=== PATIENT | male | born 1940 | race Caucasian/White ===

== ENCOUNTER 2019-09-14 20:13 | Observation (INO) | payer MEDICARE ==
[2019-09-14] MEDS ORDERED: Sodium Chloride 0.9% 10 ML Syringe FLUSH PRN ×2 (20:24→23:56)
[2019-09-14] MEDS ORDERED: Sodium Chloride 0.9% 1,000 ML IV ONE (20:27)
[2019-09-14] MEDS ORDERED: Insulin Regular, Human 100 Units/ML 3 ML Vial IVPUSH ONE (20:28)
[2019-09-14 21:23] LABS: CHLORIDE,CL 92 mmol/L (98-107)
[2019-09-14 21:27] LABS: SODIUM,NA 129 mmol/L (136-145)
--- NOTE | 2019-09-14 21:40 | EDM.PDOC ---
ED HPI GENERAL MEDICAL PROBLEM - General Chief Complaint: General Stated Complaint: HIGH BLOOD SUGAR Time Seen by Provider: 09/14/19 20:15 Source of Information: Reports: Patient, Family History Limitations: Reports: No Limitations - History of Present Illness INITIAL COMMENTS - FREE TEXT/NARRATIVE: Pt. presents to ER with complaints of elevated blood sugar, urinary frequency, and chills. 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 He underwent a decreased dose of Alimta last week due to renal insufficiency. Pt. states that he has been fatigued since then, but worse in the past 1-2 days. He has been chilled but is no checking his temp. Denies any nausea or vomiting. He does complain of some cough and respirophasic chest pain. it is non-productive. Pt. denies any dysuria, hematuria, or flank. pain. He does, however, complain or urinary frequency. Pt. denies any skin rashes or erythema. Pt. is currently "prediabetic" according to his . She states that he was started on Lantus last spring after he was seen in the ER with hyperglycemia, dehydration and ESTRELLA but he has not been taking it, according to family at the behest of his oncologist. In reviewing his chart, he has had blood sugars in to 250-300 range numerous times and he is not currently on any medication. He states that he checks his blood glucose "a few times a week". It was greater than 350mg/dl yesterday. Onset Date: 09/12/19 Location: Reports: Generalized Associated Symptoms: Reports: Chest Pain, Cough, Malaise RLQ Pain Score (Numeric/FACES): 2 - Related Data Allergies Allergy/AdvReac Type Severity Reaction Status Date / Time No Known Allergies Allergy Verified 09/14/19 21:11 Home Meds: Home Meds Acetaminophen/Diphenhydramine [Tylenol Pm Ex-Strength Caplet] 2 each PO BEDTIME 09/10/18 [History] Omeprazole 20 mg PO DAILY PRN 09/10/18 [History] Simvastatin 20 mg PO DAILY 09/10/18 [History] Dorzolamide [Trusopt 2% Ophth Soln] 1 drop OP BID 09/14/19 [History] Dronabinol 5 mg PO TID 09/14/19 [History] Folic Acid 1 mg PO DAILY 09/14/19 [History] Lactulose 15 ml PO BID 09/14/19 [History] Lidocaine/Prilocaine [Lidocaine-Prilocaine Cream] 5 gm TP ASDIRECTED PRN [History] Magnesium Oxide [Magnesium] 800 mg PO BID 09/14/19 [History] Prochlorperazine [Compazine] 10 mg PO Q6H PRN 09/14/19 [History] Past Medical History HEENT History: Reports: Cataract Cardiovascular History: Reports: High Cholesterol Gastrointestinal History: Reports: GERD Genitourinary History: Reports: Chronic Renal Insuffiency Other Genitourinary History: 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 Musculoskeletal History: Reports: Arthritis, Other (See Below) Other Musculoskeletal History: degenerative disc disease Neurological History: Reports: Headaches, Chronic, Other (See Below) Other Neuro History: insomnia Endocrine/Metabolic History: Reports: Diabetes, Type II Hematologic History: Reports: Anemia Oncologic (Cancer) History: Reports: Basal Cell Carcinoma, Liver, Renal, Squamous Cell Carcinoma Other Oncologic History: completed chemo 02/2017. 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 Other Dermatologic History: basal cell carcinoma, squamous cell carcinoma, - Past Surgical History Male Surgical History: Reports: Nephrectomy, Other (See Below) Other Male Surgeries/Procedures: ureterectomy, adrenalectomy and bladder cuff resection for renal CA ED ROS GENERAL - Review of Systems Review Of Systems: See Below Constitutional: Reports: No Symptoms HEENT: Reports: No Symptoms Respiratory: Reports: Pleuritic Chest Pain, Cough Cardiovascular: Reports: Chest Pain Endocrine: Reports: Fatigue, High Glucose, Polyuria GI/Abdominal: Reports: No Symptoms : Reports: No Symptoms Musculoskeletal: Reports: No Symptoms Skin: Reports: No Symptoms Neurological: Reports: No Symptoms Psychiatric: Reports: No Symptoms Hematologic/Lymphatic: Reports: No Symptoms Immunologic: Reports: No Symptoms ED EXAM, GENERAL - Physical Exam Exam: See Below Exam Limited By: No Limitations General Appearance: Alert, WD/WN, No Apparent Distress Eye Exam: Bilateral Eye: EOMI, Normal Fundi, Normal Inspection, PERRL Nose: Normal Inspection, No Blood Throat/Mouth: Normal Inspection, Normal Lips, Normal Teeth, Normal Gums, Normal Oropharynx, No Airway Compromise Head: Atraumatic, Normocephalic Neck: Normal Inspection, Supple, Non-Tender, Full Range of Motion Respiratory/Chest: No Respiratory Distress, Normal Breath Sounds, No Accessory Muscle Use, Chest Non-Tender, Decreased Breath Sounds Cardiovascular: Normal Peripheral Pulses, Regular Rate, Rhythm, No Edema, No Gallop, No JVD, No Murmur, No Rub Peripheral Pulses: 4+: Radial (L) GI/Abdominal: Normal Bowel Sounds, Soft, Non-Tender, No Organomegaly, No Distention, No Mass (Male) Exam: Deferred Rectal (Males) Exam: Deferred Back Exam: Normal Inspection, Full Range of Motion Extremities: Normal Inspection, Normal Range of Motion, Non-Tender, No Pedal Edema, Normal Capillary Refill Neurological: Alert, Oriented, CN II-XII Intact, Normal Cognition, Normal Gait, Normal Reflexes, No Motor/Sensory Deficits Psychiatric: Normal Affect, Normal Mood Skin Exam: Warm, Dry, Intact, No Rash, Pallor Lymphatic: No Adenopathy Course - Vital Signs Last Recorded V/S: Last Vital Signs Temp 38.3 C H 09/14/19 22:16 Pulse 100 09/14/19 22:16 Resp 18 09/14/19 22:16 BP 135/65 09/14/19 22:16 Pulse Ox 95 09/14/19 22:16 - Orders/Labs/Meds Orders: Active Orders 24 hr Category Date Time Status EKG Documentation Completion [RC] STAT Care 09/14/19 20:25 Active Implanted Port Access [RC] 08,20 Care 09/14/19 20:28 Active Chest 1V Frontal [CR] Stat Exams 09/14/19 20:25 Taken CULTURE BLOOD [BC] Stat Lab 09/14/19 20:40 Received CULTURE BLOOD [BC] Stat Lab 09/14/19 20:46 Received Sodium Chloride 0.9% [Saline Flush] Med 09/14/19 20:24 Active 10 ml FLUSH ASDIRECTED PRN Blood Culture x2 Reflex Set [OM.PC] Stat Oth 09/14/19 20:26 Ordered Medication Orders Acetaminophen/Diphenhydramine HCl (Tylenol Pm Extra Strength) tab PO BEDTIME ANDRES Folic Acid (Folic Acid) 1 mg PO DAILY ANDRES Sodium Chloride (Normal Saline) 500 mls @ 100 mls/hr IV ASDIRECTED ANDRES Lactulose (Chronulac) 10 gm PO BID ANDRES Lidocaine/Prilocaine (Emla Crm) 5 gm TOP ASDIRECTED PRN PRN Reason: IV Use Non-Formulary Medication (Dorzolamide [Trusopt 2% Ophth Soln]) 1 drop OP BID ANDRES Non-Formulary Medication (Dronabinol [Dronabinol]) 5 mg PO TID ANDRES Non-Formulary Medication (Magnesium Oxide [Magnesium]) 800 mg PO BID ANDRES Non-Formulary Medication (Prochlorperazine [Compazine]) 10 mg PO Q6H PRN PRN Reason: Nausea Omeprazole (Omeprazole) 20 mg PO DAILY PRN PRN Reason: Nausea Simvastatin (Zocor) 20 mg PO DAILY ANDRES Sodium Chloride (Saline Flush) 10 ml FLUSH ASDIRECTED PRN PRN Reason: Keep Vein Open Labs: Laboratory Tests 09/14/19 09/14/19 09/14/19 Range/Units 20:30 20:40 20:40 WBC 12.8 H (4.0-10.0) x10^3/uL RBC 2.70 L (4.5-6.0) x10^6/uL Hgb 8.8 L (14.0-18.0) g/dL Hct 26.9 L (40.0-52.0) % MCV 99.6 H D (78.0-93.0) fL MCH 32.6 H (26.0-32.0) pg MCHC 32.7 (32.0-36.0) g/dL RDW Coeff of Murray 14.2 (10.0-15.0) % Plt Count 169 (130-400) x10^3/uL Neut % (Auto) 92.6 H (50.0-80.0) % Lymph % (Auto) 6.6 L (25.0-50.0) % [place] % (Auto) 0.7 L (2.0-11.0) % Eos % (Auto) 0.0 (0.0-4.0) % Baso % (Auto) 0.1 L (0.2-1.2) % PT 11.3 (10.0-12.8) SEC INR 1.0 L (2.0-3.5) Sodium (136-145) mmol/L Potassium (3.5-5.1) mmol/L Chloride (98-107) mmol/L Carbon Dioxide (21-32) mmol/L Anion Gap (10-20) mmol/L BUN (7-18) mg/dL Creatinine (0.70-1.30) mg/dL Est Cr Clr Drug Dosing mL/min Estimated GFR (MDRD) Glucose (74-106) mg/dL POC Glucose 386 H (74-106) mg/dL Lactic Acid (0.4-2.0) mmol/L Calcium (8.5-10.1) mg/dL Corrected Calcium (8.5-10.1) mg/dL Magnesium (1.8-2.4) mg/dL Total Bilirubin (0.2-1.0) mg/dL AST (15-37) U/L ALT (16-63) U/L Alkaline Phosphatase (46-116) U/L Troponin I (<=0.056) ng/mL C-Reactive Protein (<=0.9) mg/dL Total Protein (6.4-8.2) g/dL Albumin (3.4-5.0) g/dL Globulin Albumin/Globulin Ratio TSH, Ultra Sensitive (0.358-3.74) uIU/mL Urine Color (YELLOW) Urine Appearance (CLEAR) Urine pH (5.0-8.0) Ur Specific Spade Urine Protein (NEGATIVE) mg/dL Urine Glucose (UA) (NEGATIVE) mg/dL Urine Ketones (NEGATIVE) mg/dL Urine Occult Blood (NEGATIVE) Urine Nitrite (NEGATIVE) Urine Bilirubin (NEGATIVE) Urine Urobilinogen (0.2) EU/dL Ur Leukocyte Esterase (NEGATIVE) Urine RBC (NOT SEEN) /HPF Urine WBC (NOT SEEN) /HPF Ur Squamous Epith Cells (NEGATIVE) /HPF Amorphous Sediment Urine Bacteria (NEGATIVE) /HPF Urine Mucus (NEGATIVE) /LPF 09/14/19 09/14/19 09/14/19 Range/Units 20:40 20:40 21:35 WBC (4.0-10.0) x10^3/uL RBC (4.5-6.0) x10^6/uL Hgb (14.0-18.0) g/dL Hct (40.0-52.0) % MCV (78.0-93.0) fL MCH (26.0-32.0) pg MCHC (32.0-36.0) g/dL RDW Coeff of Murray (10.0-15.0) % Plt Count (130-400) x10^3/uL Neut % (Auto) (50.0-80.0) % Lymph % (Auto) (25.0-50.0) % [place] % (Auto) (2.0-11.0) % Eos % (Auto) (0.0-4.0) % Baso % (Auto) (0.2-1.2) % PT (10.0-12.8) SEC INR (2.0-3.5) Sodium 129 L* (136-145) mmol/L Potassium 4.0 (3.5-5.1) mmol/L Chloride 92 L (98-107) mmol/L Carbon Dioxide 26 (21-32) mmol/L Anion Gap 15.0 (10-20) mmol/L BUN 34 H (7-18) mg/dL Creatinine 1.6 H (0.70-1.30) mg/dL Est Cr Clr Drug Dosing 38.02 mL/min Estimated GFR (MDRD) 42 Glucose 396 H (74-106) mg/dL POC Glucose (74-106) mg/dL Lactic Acid 1.3 (0.4-2.0) mmol/L Calcium 8.5 (8.5-10.1) mg/dL Corrected Calcium 10.02 (8.5-10.1) mg/dL Magnesium 1.3 L (1.8-2.4) mg/dL Total Bilirubin 0.6 (0.2-1.0) mg/dL AST 46 H (15-37) U/L ALT 54 (16-63) U/L Alkaline Phosphatase 789 H (46-116) U/L Troponin I < 0.017 (<=0.056) ng/mL C-Reactive Protein 21.9 H (<=0.9) mg/dL Total Protein 7.4 (6.4-8.2) g/dL Albumin 2.1 L (3.4-5.0) g/dL Globulin 5.3 Albumin/Globulin Ratio 0.40 TSH, Ultra Sensitive 0.796 (0.358-3.74) uIU/mL Urine Color Dark yellow H (YELLOW) Urine Appearance Slightly cloudy H (CLEAR) Urine pH 5.5 (5.0-8.0) Ur Specific Spade 1.010 Urine Protein 30 H (NEGATIVE) mg/dL Urine Glucose (UA) 500 H (NEGATIVE) mg/dL Urine Ketones Negative (NEGATIVE) mg/dL Urine Occult Blood Negative (NEGATIVE) Urine Nitrite Negative (NEGATIVE) Urine Bilirubin Negative (NEGATIVE) Urine Urobilinogen 0.2 (0.2) EU/dL Ur Leukocyte Esterase Negative (NEGATIVE) Urine RBC 0-5 (NOT SEEN) /HPF Urine WBC 0-5 (NOT SEEN) /HPF Ur Squamous Epith Cells Rare (NEGATIVE) /HPF Amorphous Sediment Few Urine Bacteria Few H (NEGATIVE) /HPF Urine Mucus Few H (NEGATIVE) /LPF Meds: Medications Generic Name Dose Route Start Last Admin Trade Name Freq PRN Reason Stop Dose Admin Acetaminophen/Diphenhydramine HCl tab 09/15/19 20:00 Tylenol Pm Extra Strength PO BEDTIME ANDRES Folic Acid 1 mg 09/15/19 08:00 Folic Acid PO DAILY ANDRES Sodium Chloride 500 mls @ 100 mls/hr 09/14/19 23:00 Normal Saline IV ASDIRECTED ANDRES Lactulose 10 gm 09/15/19 08:00 Chronulac PO BID ANDRES Lidocaine/Prilocaine 5 gm 09/14/19 22:26 Emla Crm TOP ASDIRECTED PRN IV Use Non-Formulary Medication 1 drop 09/15/19 08:00 Dorzolamide [Trusopt 2% Ophth Soln] OP BID ANDRES Non-Formulary Medication 5 mg 09/15/19 08:00 Dronabinol [Dronabinol] PO TID ANDRES Non-Formulary Medication 800 mg 09/15/19 08:00 Magnesium Oxide [Magnesium] PO BID ANDRES Non-Formulary Medication 10 mg 09/14/19 22:26 Prochlorperazine [Compazine] PO Q6H PRN Nausea Omeprazole 20 mg 09/14/19 22:26 Omeprazole PO DAILY PRN Nausea Simvastatin 20 mg 09/15/19 08:00 Zocor PO DAILY ANDRES Sodium Chloride 10 ml 09/14/19 20:24 Saline Flush FLUSH ASDIRECTED PRN Keep Vein Open Discontinued Medications Generic Name Dose Route Start Last Admin Trade Name Freq PRN Reason Stop Dose Admin Ceftriaxone Sodium 1 gm 09/14/19 21:52 09/14/19 22:00 Rocephin IVPUSH 09/14/19 21:53 1 gm STAT ONE Administration Sodium Chloride 1,000 mls @ 500 mls/hr 09/14/19 20:27 09/14/19 20:49 Normal Saline IV 09/14/19 22:26 500 mls/hr .BOLUS ONE Administration Azithromycin 500 mg/ Sodium 250 mls @ 250 mls/hr 09/14/19 21:52 09/14/19 22: 03 Chloride IV 09/14/19 22:51 250 mls/hr STAT ONE Administration Insulin Human Regular 10 unit 09/14/19 20:28 09/14/19 20:50 Humulin R IVPUSH 09/14/19 20:29 10 units ONETIME ONE Administration - Radiology Interpretation Free Text/Narrative:: Increased peribronchial thickening, inflammatory vs. infectious. Departure - Departure Time of Disposition: 11:13 Disposition: Refer to Observation Clinical Impression: Pneumonia, Hyperglycemia due to type 2 diabetes mellitus, Hyponatremia - Discharge Information - Problem List Review Problem List Initiated/Reviewed/Updated: Yes - My Orders Last 24 Hours: My Active Orders 09/14/19 20:24 Sodium Chloride 0.9% [Saline Flush] 10 ml FLUSH ASDIRECTED PRN 09/14/19 20:25 EKG Documentation Completion [RC] STAT Chest 1V Frontal [CR] Stat 09/14/19 20:26 Blood Culture x2 Reflex Set [OM.PC] Stat 09/14/19 20:28 Implanted Port Access [RC] ,09/14/19 20:40 CULTURE BLOOD [BC] Stat 09/14/19 20:46 CULTURE BLOOD [BC] Stat - Assessment/Plan Last 24 Hours: My Active Orders 09/14/19 20:24 Sodium Chloride 0.9% [Saline Flush] 10 ml FLUSH ASDIRECTED PRN 09/14/19 20:25 EKG Documentation Completion [RC] STAT Chest 1V Frontal [CR] Stat 09/14/19 20:26 Blood Culture x2 Reflex Set [OM.PC] Stat 09/14/19 20:28 Implanted Port Access [RC] ,09/14/19 20:40 CULTURE BLOOD [BC] Stat 09/14/19 20:46 CULTURE BLOOD [BC] Stat Plan: Pt. will be admitted observation. He is a patient of [facility]. He is a code 1. He does have some hilar opacification. His white count is elevated. Will treat him for pneumonia, given his pleuritic chest discomfort and cough. Repeat chest x-ray in the AM. Pt. was given 10U regular insulin in ER. 1 hour bedside glucose showed a 140mg/ dl drop. He was given a 500ml NS bolus and started on NS at 125ml/hr. Will do q2 hour blood glucose checks. He was also given a small snack on admission. He does have an elevated creatinine, but it is actually lower than it was as an outpatient at the end of Aug. All questions were answered. 3 hour troponin due at midnight. Will repeat CBC, chemisty, and troponin in the AM.
[2019-09-14] MEDS ORDERED: Azithromycin 500 MG in Sodium Chloride 0.9% 250 ML IV ONE (21:52)
[2019-09-14] MEDS ORDERED: cefTRIAXone 1 GM Vial IVPUSH ONE (21:52)
[2019-09-14] MEDS ORDERED: Lidocaine/Prilocaine 2.5-2.5% Crm 5 GM Tube TOP PRN (22:26)
[2019-09-14] MEDS ORDERED: Prochlorperazine 5 MG Tab PO PRN (22:26)
[2019-09-14] MEDS ORDERED: Sodium Chloride 0.9% 500 ML IV SCH (23:00)
[2019-09-14] MEDS: Omeprazole 20 MG Cap.CR PO PRN (23:57)
[2019-09-14] MEDS: Acetaminophen/Diphenhydramine 500-25 MG Tab PO SCH (23:58)
[2019-09-15] MEDS ORDERED: Sodium Chloride 0.9% 10 ML Syringe FLUSH PRN (00:43)
[2019-09-15 07:32] LABS: CHLORIDE,CL 99 mmol/L (98-107); SODIUM,NA 133 mmol/L (136-145)
[2019-09-15 07:33] LABS: ANION GAP 11.7 mmol/L (10-20)
[2019-09-15] MEDS ORDERED: DRONABINOL 5 MG PO SCH (08:00)
--- NOTE | 2019-09-15 08:13 | CR ---
[id number] RAD/RAD Chest PA or AP 1V EXAM: RAD Chest PA or AP 1V INDICATION: CHEST PAIN COMPARISON: None. DISCUSSION: Blunting of the left costophrenic sulcus with small nodular appearing parenchymal opacities. Findings are nonspecific and can be seen with chronic interstitial lung disease versus pneumonia. Correlate for signs of infection. Findings are superimposed on bilateral symmetric lung hyperinflation suggesting underlying COPD. Right chest wall port catheter in place. Cardiac mediastinal silhouette is unremarkable. IMPRESSION: As above. Pepe Jane MD 09/15/19 0812 Thank you for allowing us to participate in the care of your patient.
[2019-09-15] MEDS: Folic Acid 1 MG Tab PO SCH (09:08)
[2019-09-15] MEDS: Lactulose Soln 10 GM/15 ML 15 ML UD Cup PO SCH ×2 (09:09→19:59)
[2019-09-15] MEDS: Magnesium Oxide 400 MG Tab PO SCH ×2 (09:09→19:59)
[2019-09-15] MEDS: Simvastatin 20 MG Tab PO SCH (09:13)
[2019-09-15] MEDS: Sodium Chloride 0.9% 10 ML Syringe IV SCH ×2 (09:14→20:00)
[2019-09-15] MEDS ORDERED: Insulin Glargine,Human Rec. Analog 100 Units/ML 3 ML Pen SUBCUT SCH (09:15)
[2019-09-15] MEDS: Sodium Chloride 0.9% 1,000 ML IV SCH ×2 (12:15→22:54)
[2019-09-15] MEDS ORDERED: Insulin Regular, Human 100 Units/ML 3 ML Vial IVPUSH ONE (12:51)
[2019-09-15] MEDS ORDERED: Insulin Regular, Human 100 Units/ML 3 ML Vial IVPUSH STA (19:48)
[2019-09-15] MEDS: Acetaminophen/Diphenhydramine 500-25 MG Tab PO SCH (19:59)
[2019-09-15] MEDS: cefTRIAXone 1 GM Vial IVPUSH SCH (19:59)
[2019-09-15] MEDS ORDERED: Azithromycin 500 MG in Sodium Chloride 0.9% 250 ML IV SCH (20:00)
[2019-09-15] MEDS ORDERED: Azithromycin 500 MG in Sodium Chloride 0.9% 250 ML IV ONE (21:00)
--- NOTE | 2019-09-15 23:01 | PCM.PN ---
- General Info Date of Service: 09/15/19 Admission Dx/Problem (Free Text): Pt. is feeling better this AM. Pt. was started on Lantus 10 u daily this AM. Blood sugars have been in the 220-330 range. He has required regular insulin twice for postprandial hyperglycemia. Pt. sodium has normalized. He has not been experiencing any chest pain or shortness of breath. Denies any vomiting or diarrhea. Pt. continues to have a mild, non-productive cough. He was started on Rocephin and Azithromycin on admit for possible pneumonia. White count was down to 11. Lactic acid was within normal limits. Troponin was trended and continued to be negative. Telemetry showed sinus rhythm without any acute ST or T wave changes. Functional Status: Reports: Pain Controlled, Tolerating Diet, Ambulating, Urinating - Review of Systems General: Reports: No Symptoms HEENT: Reports: No Symptoms Pulmonary: Reports: Cough Cardiovascular: Reports: No Symptoms Gastrointestinal: Reports: No Symptoms Genitourinary: Reports: No Symptoms Musculoskeletal: Reports: No Symptoms Skin: Reports: No Symptoms Neurological: Reports: No Symptoms Psychiatric: Reports: No Symptoms - Patient Data Vitals - Most Recent: Last Vital Signs Temp 36.6 C 09/15/19 21:57 Pulse 73 09/15/19 21:57 Resp 18 09/15/19 21:57 BP 97/49 L 09/15/19 21:57 Pulse Ox 96 09/15/19 21:57 Weight - Most Recent: 74.933 kg I&O - Last 24 Hours: Intake & Output 09/15/19 09/15/19 09/15/19 06:59 14:59 22:59 Intake Total 1250 693 Output Total 450 400 Balance 800 -400 693 Lab Results Last 24 Hours: Laboratory Results - last 24 hr 09/15/19 09/15/19 09/15/19 Range/Units 00:01 00:17 02:04 WBC (4.0-10.0) x10^3/uL RBC (4.5-6.0) x10^6/uL Hgb (14.0-18.0) g/dL Hct (40.0-52.0) % MCV (78.0-93.0) fL MCH (26.0-32.0) pg MCHC (32.0-36.0) g/dL RDW Coeff of Murray (10.0-15.0) % Plt Count (130-400) x10^3/uL Neut % (Auto) (50.0-80.0) % Lymph % (Auto) (25.0-50.0) % [place] % (Auto) (2.0-11.0) % Eos % (Auto) (0.0-4.0) % Baso % (Auto) (0.2-1.2) % Sodium (136-145) mmol/L Potassium (3.5-5.1) mmol/L Chloride (98-107) mmol/L Carbon Dioxide (21-32) mmol/L Anion Gap (10-20) mmol/L BUN (7-18) mg/dL Creatinine (0.70-1.30) mg/dL Est Cr Clr Drug Dosing mL/min Estimated GFR (MDRD) Glucose (74-106) mg/dL POC Glucose 211 H 286 H (74-106) mg/dL Calcium (8.5-10.1) mg/dL Corrected Calcium (8.5-10.1) mg/dL Total Bilirubin (0.2-1.0) mg/dL AST (15-37) U/L ALT (16-63) U/L Alkaline Phosphatase (46-116) U/L Troponin I < 0.017 (<=0.056) ng/mL Total Protein (6.4-8.2) g/dL Albumin (3.4-5.0) g/dL Globulin Albumin/Globulin Ratio 09/15/19 09/15/19 09/15/19 Range/Units 04:01 06:01 06:57 WBC 11.0 H (4.0-10.0) x10^3/uL RBC 2.48 L (4.5-6.0) x10^6/uL Hgb 7.9 L (14.0-18.0) g/dL Hct 24.6 L (40.0-52.0) % MCV 99.2 H (78.0-93.0) fL MCH 31.9 (26.0-32.0) pg MCHC 32.1 (32.0-36.0) g/dL RDW Coeff of [place] 14.0 (10.0-15.0) % Plt Count 147 (130-400) x10^3/uL Neut % (Auto) 90.2 H (50.0-80.0) % Lymph % (Auto) 7.5 L (25.0-50.0) % [place] % (Auto) 2.0 (2.0-11.0) % Eos % (Auto) 0.3 (0.0-4.0) % Baso % (Auto) 0.0 L (0.2-1.2) % Sodium (136-145) mmol/L Potassium (3.5-5.1) mmol/L Chloride (98-107) mmol/L Carbon Dioxide (21-32) mmol/L Anion Gap (10-20) mmol/L BUN (7-18) mg/dL Creatinine (0.70-1.30) mg/dL Est Cr Clr Drug Dosing mL/min Estimated GFR (MDRD) Glucose (74-106) mg/dL POC Glucose 299 H 326 H (74-106) mg/dL Calcium (8.5-10.1) mg/dL Corrected Calcium (8.5-10.1) mg/dL Total Bilirubin (0.2-1.0) mg/dL AST (15-37) U/L ALT (16-63) U/L Alkaline Phosphatase (46-116) U/L Troponin I (<=0.056) ng/mL Total Protein (6.4-8.2) g/dL Albumin (3.4-5.0) g/dL Globulin Albumin/Globulin Ratio 09/15/19 09/15/19 09/15/19 Range/Units 06:57 07:45 09:54 WBC (4.0-10.0) x10^3/uL RBC (4.5-6.0) x10^6/uL Hgb (14.0-18.0) g/dL Hct (40.0-52.0) % MCV (78.0-93.0) fL MCH (26.0-32.0) pg MCHC (32.0-36.0) g/dL RDW Coeff of [place] (10.0-15.0) % Plt Count (130-400) x10^3/uL Neut % (Auto) (50.0-80.0) % Lymph % (Auto) (25.0-50.0) % [place] % (Auto) (2.0-11.0) % Eos % (Auto) (0.0-4.0) % Baso % (Auto) (0.2-1.2) % Sodium 133 L (136-145) mmol/L Potassium 3.7 (3.5-5.1) mmol/L Chloride 99 (98-107) mmol/L Carbon Dioxide 26 (21-32) mmol/L Anion Gap 11.7 (10-20) mmol/L BUN 30 H (7-18) mg/dL Creatinine 1.4 H (0.70-1.30) mg/dL Est Cr Clr Drug Dosing 43.45 mL/min Estimated GFR (MDRD) 49 Glucose 284 H (74-106) mg/dL POC Glucose 260 H 306 H (74-106) mg/dL Calcium 8.4 L (8.5-10.1) mg/dL Corrected Calcium 10.24 H (8.5-10.1) mg/dL Total Bilirubin 0.7 (0.2-1.0) mg/dL AST 31 (15-37) U/L ALT 40 (16-63) U/L Alkaline Phosphatase 816 H (46-116) U/L Troponin I < 0.017 (<=0.056) ng/mL Total Protein 6.2 L (6.4-8.2) g/dL Albumin 1.7 L (3.4-5.0) g/dL Globulin 4.5 Albumin/Globulin Ratio 0.38 09/15/19 09/15/19 Range/Units 11:41 13:31 WBC (4.0-10.0) x10^3/uL RBC (4.5-6.0) x10^6/uL Hgb (14.0-18.0) g/dL Hct (40.0-52.0) % MCV (78.0-93.0) fL MCH (26.0-32.0) pg MCHC (32.0-36.0) g/dL RDW Coeff of [place] (10.0-15.0) % Plt Count (130-400) x10^3/uL Neut % (Auto) (50.0-80.0) % Lymph % (Auto) (25.0-50.0) % [place] % (Auto) (2.0-11.0) % Eos % (Auto) (0.0-4.0) % Baso % (Auto) (0.2-1.2) % Sodium (136-145) mmol/L Potassium (3.5-5.1) mmol/L Chloride (98-107) mmol/L Carbon Dioxide (21-32) mmol/L Anion Gap (10-20) mmol/L BUN (7-18) mg/dL Creatinine (0.70-1.30) mg/dL Est Cr Clr Drug Dosing mL/min Estimated GFR (MDRD) Glucose (74-106) mg/dL POC Glucose 331 H 309 H (74-106) mg/dL Calcium (8.5-10.1) mg/dL Corrected Calcium (8.5-10.1) mg/dL Total Bilirubin (0.2-1.0) mg/dL AST (15-37) U/L ALT (16-63) U/L Alkaline Phosphatase (46-116) U/L Troponin I (<=0.056) ng/mL Total Protein (6.4-8.2) g/dL Albumin (3.4-5.0) g/dL Globulin Albumin/Globulin Ratio Reed Results Last 24 Hours: Microbiology 09/14/19 20:46 Aerobic Blood Culture - Preliminary Blood - Venous - Lab Draw NO GROWTH AFTER 1 DAY Anaerobic Blood Culture - Preliminary NO GROWTH AFTER 1 DAY 09/14/19 20:40 Aerobic Blood Culture - Preliminary Blood - Venous NO GROWTH AFTER 1 DAY Anaerobic Blood Culture - Preliminary NO GROWTH AFTER 1 DAY Med Orders - Current: Current Medications Acetaminophen/Diphenhydramine HCl (Tylenol Pm Extra Strength) 2 tab PO BEDTIME [facility] Last Admin: 09/15/19 19:59 Dose: 2 tab Ceftriaxone Sodium (Rocephin) 1 gm IVPUSH DAILY [facility] Last Admin: 09/15/19 19:59 Dose: 1 gm Folic Acid (Folic Acid) 1 mg PO DAILY [facility] Last Admin: 09/15/19 09:08 Dose: 1 mg Heparin Sodium (Porcine) (Heparin Lock Flush 100 Units/Ml) 500 units IVPUSH ASDIRECTED PRN PRN Reason: Keep Vein Open Last Admin: 09/15/19 09:14 Dose: 500 units Sodium Chloride (Normal Saline) 1,000 mls @ 100 mls/hr IV ASDIRECTED [facility] Last Admin: 09/15/19 22:54 Dose: 100 mls/hr Insulin Glargine (Lantus Solostar) 20 units SUBCUT DAILY [facility] Lactulose (Chronulac) 10 gm PO BID [facility] Last Admin: 09/15/19 19:59 Dose: 10 gm Lidocaine/Prilocaine (Emla Crm) 5 gm TOP ASDIRECTED PRN PRN Reason: IV Use Magnesium Oxide (Magnesium Oxide) 800 mg PO BID [facility] Last Admin: 09/15/19 19:59 Dose: 800 mg Omeprazole (Omeprazole) 20 mg PO DAILY PRN PRN Reason: Nausea Last Admin: 09/14/19 23:57 Dose: 20 mg Prochlorperazine Maleate (Compazine) 10 mg PO Q6H PRN PRN Reason: Nausea Simvastatin (Zocor) 20 mg PO DAILY [facility] Last Admin: 09/15/19 09:13 Dose: 20 mg Sodium Chloride (Saline Flush) 20 ml IV BID [facility] Last Admin: 09/15/19 20:00 Dose: 20 ml Sodium Chloride (Saline Flush) 10 ml FLUSH ASDIRECTED PRN PRN Reason: Keep Vein Open Last Admin: 09/15/19 06:15 Dose: 20 ml Discontinued Medications Ceftriaxone Sodium (Rocephin) 1 gm IVPUSH STAT ONE Stop: 09/14/19 21:53 Last Admin: 09/14/19 22:00 Dose: 1 gm Sodium Chloride (Normal Saline) 1,000 mls @ 500 mls/hr IV .BOLUS ONE Stop: 09/14/19 22:26 Last Infusion: 09/14/19 22:49 Dose: Infused Azithromycin 500 mg/ Sodium (Chloride) 250 mls @ 250 mls/hr IV STAT ONE Stop: 09/14/19 22:51 Last Admin: 09/14/19 22:03 Dose: 250 mls/hr Sodium Chloride (Normal Saline) 500 mls @ 100 mls/hr IV ASDIRECTED [facility] Azithromycin 500 mg/ Sodium (Chloride) 250 mls @ 250 mls/hr IV DAILY [facility] Azithromycin 500 mg/ Sodium (Chloride) 250 mls @ 250 mls/hr IV DAILY@2100 ONE Stop: 09/15/19 21:59 Last Admin: 09/15/19 20:00 Dose: 250 mls/hr Insulin Glargine (Lantus Solostar) 10 units SUBCUT DAILY [facility] Last Admin: 09/15/19 09:44 Dose: 10 units Insulin Human Regular (Humulin R) 10 unit IVPUSH ONETIME ONE Stop: 09/14/19 20:29 Last Admin: 09/14/19 20:50 Dose: 10 units Insulin Human Regular (Humulin R) 5 unit IVPUSH ONETIME ONE Stop: 09/15/19 12:52 Last Admin: 09/15/19 13:18 Dose: 5 units Insulin Human Regular (Humulin R) 5 unit IVPUSH ONETIME STA Stop: 09/15/19 19:49 Last Admin: 09/15/19 19:55 Dose: 5 units Dorzolamide [Trusopt 2% Oph Soln] (Own Supply) 1 drop OP BID [facility] Last Admin: 09/15/19 09:33 Dose: Not Given Dronabinol 5 Mg (Own (Supply)) 0 mg PO TID [facility] Last Admin: 09/15/19 12:13 Dose: Not Given Sodium Chloride (Saline Flush) 10 ml FLUSH ASDIRECTED PRN PRN Reason: Keep Vein Open Sodium Chloride (Saline Flush) 20 ml FLUSH ASDIRECTED PRN PRN Reason: Keep Vein Open Last Admin: 09/15/19 00:19 Dose: 20 ml - Exam General: Alert, Oriented Neck: Supple Lungs: Decreased Breath Sounds Cardiovascular: Regular Rate, Regular Rhythm GI/Abdominal Exam: Normal Bowel Sounds, Soft, Non-Tender, No Organomegaly, No Distention, No Mass (Male) Exam: Deferred Back Exam: Normal Inspection Extremities: Normal Inspection, Normal Range of Motion, Non-Tender, No Pedal Edema Peripheral Pulses: 4+: Radial (R) Skin: Warm, Dry, Intact Neurological: No New Focal Deficit Psy/Mental Status: Alert, Normal Affect, Normal Mood - Problem List Review Problem List Initiated/Reviewed/Updated: Yes - My Orders Last 24 Hours: My Active Orders 09/14/19 22:13 Blood Glucose Check, Bedside [RC] 20,02,07,11,17 09/14/19 22:16 Intake and Output [RC] 06,18 Up With Assistance [RC] 11,16 VTE/DVT Education [RC] .PRN Vital Signs [RC] 02,06,10,14,18,09/14/19 22:26 Lidocaine/Prilocaine [EMLA Crm] 5 gm TOP ASDIRECTED PRN Omeprazole 20 mg PO DAILY PRN Prochlorperazine [Compazine] 10 mg PO Q6H PRN 09/14/19 22:27 Cardiac Monitoring [RC] 06,10,14,18,22,02 09/14/19 22:40 Code Status [Resuscitation Status] Routine 09/14/19 23:30 Acetaminophen/Diphenhydramine [Tylenol PM Extra Strength] 2 tab PO BEDTIME 09/14/19 23:54 Heparin Sodium [Heparin Lock Flush 100 Units/ML] 500 units IVPUSH ASDIRECTED PRN 09/15/19 00:43 Sodium Chloride 0.9% [Saline Flush] 10 ml FLUSH ASDIRECTED PRN 09/15/19 08:00 Folic Acid 1 mg PO DAILY Lactulose [Chronulac] 10 gm PO BID Magnesium Oxide 800 mg PO BID Simvastatin [Zocor] 20 mg PO DAILY Sodium Chloride 0.9% [Saline Flush] 20 ml IV BID 09/15/19 12:15 Sodium Chloride 0.9% [Normal Saline] 1,000 ml IV ASDIRECTED 09/15/19 19:06 Dietary Supplements [RC] 8905,7330 09/15/19 19:59 Communication Order [RC] 09/15/19 20:00 cefTRIAXone [Rocephin] 1 gm IVPUSH DAILY 09/15/19 Breakfast ADA Diabetic [[place] [employer] Diet] [DIET] [place] [employer] Diet [DIET] 09/16/19 08:00 Insulin Glarg,Human.Rec.Analog [LantUS Solostar] 20 units SUBCUT DAILY - Assessment Assessment:: 1.Community acquired pneumonia. 2.Elevated blood glucose, history of diet controlled DM, exacerbated by steroid use. 3. Hyponatremia, resolved, secondary to #1 and #2. - Plan Plan:: 1. Discontinue Telemetry. 2. Continue NS @ 100ml/hr. 3. Continue Rocephin 1 gm once daily and azithromycin 500mg IV daily. 4. Will increase Lantus to 20U daily. 5. Repeat chemistry and CBC in AM. Anticipate discharge tomorrow.
[2019-09-16] MEDS ORDERED: Insulin Glargine,Human Rec. Analog 100 Units/ML 3 ML Pen SUBCUT SCH (08:00)
[2019-09-16] MEDS: cefTRIAXone 1 GM Vial IVPUSH SCH ×2 (08:01→17:04)
[2019-09-16] MEDS ORDERED: 50% Dextrose in Water 50 ML Syringe IV PRN (08:13)
[2019-09-16] MEDS ORDERED: Azithromycin 250 MG Tab PO SCH (08:15)
[2019-09-16] MEDS ORDERED: Magnesium Hydroxide 400 MG/5 ML Susp 30 ML Cup PO PRN (08:52)
[2019-09-16] MEDS: Lactulose Soln 10 GM/15 ML 15 ML UD Cup PO SCH (08:54)
[2019-09-16] MEDS: Magnesium Oxide 400 MG Tab PO SCH (08:55)
[2019-09-16] MEDS: Simvastatin 20 MG Tab PO SCH (08:55)
[2019-09-16] MEDS: Omeprazole 20 MG Cap.CR PO PRN (08:55)
[2019-09-16] MEDS: Folic Acid 1 MG Tab PO SCH (08:55)
[2019-09-16] MEDS: Sodium Chloride 0.9% 10 ML Syringe IV SCH ×2 (08:59→17:04)
--- NOTE | 2019-09-16 15:23 | PCM.DCSUM1 ---
Discharge Summary - Hospital Course Free Text/Narrative:: PT presented to the er x 2 days ago c/o high BS and not feeling well. PT is receiving chemo at this time states DM was controlled with diet until now. Today pt is feeling much better, does understand he will need to be on Lantus at this time will start 20u daily. BS has been in low 200, pt will need to follow up with pcp for dosage adjustment and monitoring. Will D/C with 1 month supply of lantus and needles, will continue azithromycin 150mg for two more days. coverage for pneumonia. HEENT negative Lunch clear all morrison Skin pink warm dry, Heart: S1, S2 pt able to ambulate AOx 3 to person, place, time and event. - Discharge Data Discharge Date: 09/16/19 Discharge Disposition: Home, Self-Care 01 Condition: Good - Referral to Home Health Primary Care Physician: David Bell MD - Patient Instructions Diet: Diabetic Diet - Discharge Plan Home Medications: Home Meds Acetaminophen/Diphenhydramine [Tylenol Pm Ex-Strength Caplet] 2 each PO BEDTIME 09/10/18 [History] Omeprazole 20 mg PO DAILY PRN 09/10/18 [History] Simvastatin 20 mg PO DAILY 09/10/18 [History] Dorzolamide [Trusopt 2% Ophth Soln] 1 drop OP BID 09/14/19 [History] Dronabinol 5 mg PO TID 09/14/19 [History] Folic Acid 1 mg PO DAILY 09/14/19 [History] Lactulose 15 ml PO BID 09/14/19 [History] Lidocaine/Prilocaine [Lidocaine-Prilocaine Cream] 5 gm TP ASDIRECTED PRN [History] Magnesium Oxide [Magnesium] 800 mg PO BID 09/14/19 [History] Prochlorperazine [Compazine] 10 mg PO Q6H PRN 09/14/19 [History] Forms: ED Department Discharge Referrals: Redd Bell MD [Primary Care Provider] - - Discharge Summary/Plan Comment DC Time >30 min.: Yes - Patient Data Vitals - Most Recent: Last Vital Signs Temp 37.3 C 09/16/19 14:00 Pulse 98 09/16/19 14:00 Resp 20 09/16/19 14:00 BP 138/65 09/16/19 14:00 Pulse Ox 96 09/16/19 14:00 Weight - Most Recent: 77.111 kg I&O - Last 24 hours: Intake & Output 09/16/19 09/16/19 09/16/19 06:59 14:59 22:59 Intake Total 1330 654 Output Total 800 Balance 530 654 Lab Results - Last 24 hrs: Laboratory Results - last 24 hr 09/15/19 09/15/19 09/15/19 Range/Units 16:23 17:31 19:38 POC Glucose 227 H 236 H 279 H (74-106) mg/dL 09/15/19 09/15/19 09/16/19 Range/Units 20:10 20:55 01:47 POC Glucose 294 H 265 H 214 H (74-106) mg/dL 09/16/19 09/16/19 Range/Units 06:26 11:20 POC Glucose 180 H 243 H (74-106) mg/dL KARIN Results - Last 24 hrs: Microbiology 09/14/19 20:46 Aerobic Blood Culture - Preliminary Blood - Venous - Lab Draw NO GROWTH AFTER 1 DAY Anaerobic Blood Culture - Preliminary NO GROWTH AFTER 1 DAY 09/14/19 20:40 Aerobic Blood Culture - Preliminary Blood - Venous NO GROWTH AFTER 1 DAY Anaerobic Blood Culture - Preliminary NO GROWTH AFTER 1 DAY Med Orders - Current: Current Medications Acetaminophen/Diphenhydramine HCl (Tylenol Pm Extra Strength) 2 tab PO BEDTIME [facility] Last Admin: 09/15/19 19:59 Dose: 2 tab Azithromycin (Zithromax) 250 mg PO DAILY [facility] Last Admin: 09/16/19 08:55 Dose: 250 mg Ceftriaxone Sodium (Rocephin) 1 gm IVPUSH DAILY [facility] Last Admin: 09/16/19 08:01 Dose: Not Given Dextrose/Water (Dextrose 50% In Water) 50 ml IV ASDIRECTED PRN PRN Reason: Hypoglycemia Folic Acid (Folic Acid) 1 mg PO DAILY [facility] Last Admin: 09/16/19 08:55 Dose: 1 mg Heparin Sodium (Porcine) (Heparin Lock Flush 100 Units/Ml) 500 units IVPUSH ASDIRECTED PRN PRN Reason: Keep Vein Open Last Admin: 09/16/19 09:14 Dose: 500 units Sodium Chloride (Normal Saline) 1,000 mls @ 100 mls/hr IV ASDIRECTED [facility] Last Admin: 09/15/19 22:54 Dose: 100 mls/hr Insulin Glargine (Lantus Solostar) 0 units SUBCUT DAILY [facility] Last Admin: 09/16/19 08:56 Dose: 20 units Lactulose (Chronulac) 10 gm PO BID [facility] Last Admin: 09/16/19 08:54 Dose: 10 gm Lidocaine/Prilocaine (Emla Crm) 5 gm TOP ASDIRECTED PRN PRN Reason: IV Use Magnesium Hydroxide (Milk Of Magnesia) 30 ml PO BID PRN PRN Reason: Constipation Last Admin: 09/16/19 09:14 Dose: 30 ml Magnesium Oxide (Magnesium Oxide) 800 mg PO BID [facility] Last Admin: 09/16/19 08:55 Dose: 800 mg Omeprazole (Omeprazole) 20 mg PO DAILY PRN PRN Reason: Nausea Last Admin: 09/16/19 08:55 Dose: 20 mg Prochlorperazine Maleate (Compazine) 10 mg PO Q6H PRN PRN Reason: Nausea Simvastatin (Zocor) 20 mg PO DAILY [facility] Last Admin: 09/16/19 08:55 Dose: 20 mg Sodium Chloride (Saline Flush) 20 ml IV BID [facility] Last Admin: 09/16/19 08:59 Dose: 20 ml Sodium Chloride (Saline Flush) 10 ml FLUSH ASDIRECTED PRN PRN Reason: Keep Vein Open Last Admin: 09/15/19 06:15 Dose: 20 ml Discontinued Medications Ceftriaxone Sodium (Rocephin) 1 gm IVPUSH STAT ONE Stop: 09/14/19 21:53 Last Admin: 09/14/19 22:00 Dose: 1 gm Sodium Chloride (Normal Saline) 1,000 mls @ 500 mls/hr IV .BOLUS ONE Stop: 09/14/19 22:26 Last Infusion: 09/14/19 22:49 Dose: Infused Azithromycin 500 mg/ Sodium (Chloride) 250 mls @ 250 mls/hr IV STAT ONE Stop: 09/14/19 22:51 Last Admin: 09/14/19 22:03 Dose: 250 mls/hr Sodium Chloride (Normal Saline) 500 mls @ 100 mls/hr IV ASDIRECTED [facility] Azithromycin 500 mg/ Sodium (Chloride) 250 mls @ 250 mls/hr IV DAILY [facility] Azithromycin 500 mg/ Sodium (Chloride) 250 mls @ 250 mls/hr IV DAILY@2100 ONE Stop: 09/15/19 21:59 Last Admin: 09/15/19 20:00 Dose: 250 mls/hr Insulin Glargine (Lantus Solostar) 10 units SUBCUT DAILY [facility] Last Admin: 09/15/19 09:44 Dose: 10 units Insulin Human Regular (Humulin R) 10 unit IVPUSH ONETIME ONE Stop: 09/14/19 20:29 Last Admin: 09/14/19 20:50 Dose: 10 units Insulin Human Regular (Humulin R) 5 unit IVPUSH ONETIME ONE Stop: 09/15/19 12:52 Last Admin: 09/15/19 13:18 Dose: 5 units Insulin Human Regular (Humulin R) 5 unit IVPUSH ONETIME STA Stop: 09/15/19 19:49 Last Admin: 09/15/19 19:55 Dose: 5 units Dorzolamide [Trusopt 2% Ophth Soln] (Own Supply) 1 drop OP BID [facility] Last Admin: 09/15/19 09:33 Dose: Not Given Dronabinol 5 Mg (Own (Supply)) 0 mg PO TID [facility] Last Admin: 09/15/19 12:13 Dose: Not Given Sodium Chloride (Saline Flush) 10 ml FLUSH ASDIRECTED PRN PRN Reason: Keep Vein Open Sodium Chloride (Saline Flush) 20 ml FLUSH ASDIRECTED PRN PRN Reason: Keep Vein Open Last Admin: 09/15/19 00:19 Dose: 20 ml
== END 2019-09-16 17:30 | disposition home or self-care (01) ==
LOC: VM.ED 20:13 → VM.MS 21:53
PROVIDERS: ADMIT Physician Assistant; ATTEND Physician Assistant
DX: E11.65 Type 2 diabetes mellitus with hyperglycemia (principal); J18.9 Pneumonia, unspecified organism; E87.1 Hypo-osmolality and hyponatremia
CPT/HCPCS: 36415; 71045; 80053; 81001; 82962; 83605; 83735; 84443; 84484; 85025; 85610; 86140; 87040; 93005; 96365; 96375; 99217; 99220; 99225; 99285-25; A9270-GY; J0456; J0696; J1642; J1815-GY; J7030; J7050

== ENCOUNTER 2019-11-22 10:53 | Emergency (ER) | payer MEDICARE ==
[2019-11-22] MEDS ORDERED: Sodium Phosphate,Monobasic/Sodium Phosphate,Dibasic Enema 133 ML Bottle RECTAL ONE (11:38)
--- NOTE | 2019-11-22 11:41 | EDM.PDOC ---
ED HPI GENERAL MEDICAL PROBLEM - General Chief Complaint: Abdominal Pain Stated Complaint: DIZZY,WEAK,ON CHEMO Time Seen by Provider: 11/22/19 11:30 Source of Information: Reports: Patient History Limitations: Reports: No Limitations - History of Present Illness INITIAL COMMENTS - FREE TEXT/NARRATIVE: Patient presents with complaints of constipation. Has not had a bowel movement since Sunday. ADmits that has had issues like this in the past as a result of his chemo regimen. Does not take anything on a routine basis "but I think I need to start". He has tried MOM and a suppository at home, states has had to have enema in the past to resolve it. Denies any nausea or vomiting. Does feel weak and dizzy at times from his chemo. Is on his off week, due for chemo again on Sunday. No fevers. MIld abdominal discomfort in the lower quads. Onset: Gradual Duration: Day(s):, Getting Worse Location: Reports: Abdomen Quality: Reports: Pressure, Sharp Severity: Moderate Associated Symptoms: Reports: Loss of Appetite (due to chemo), Malaise, Weakness. Denies: Confusion, Chest Pain, Cough, Fever/Chills, Nausea/Vomiting, Shortness of Breath, Syncope Treatments FOUNTAIN MANAGER: Reports: Other Medication(s) Other Treatments FOUNTAIN MANAGER: dulcolax supp, MOM Abdominal Pain Score (Numeric/FACES): 7 - Related Data Allergies Allergy/AdvReac Type Severity Reaction Status Date / Time No Known Allergies Allergy Verified 09/14/19 21:11 Home Meds: Home Meds Acetaminophen/Diphenhydramine [Tylenol Pm Ex-Strength Caplet] 2 each PO BEDTIME 09/10/18 [History] Omeprazole 20 mg PO DAILY PRN 09/10/18 [History] Simvastatin 20 mg PO DAILY 09/10/18 [History] Dorzolamide [Trusopt 2% Ophth Soln] 1 drop OP BID 09/14/19 [History] Lidocaine/Prilocaine [Lidocaine-Prilocaine Cream] 5 gm TP ASDIRECTED PRN [History] Magnesium Oxide [Magnesium] 800 mg PO BID 09/14/19 [History] Prochlorperazine [Compazine] 10 mg PO Q6H PRN 09/14/19 [History] dronabinoL [Dronabinol] 5 mg PO DAILY 09/14/19 [History] Enfortumab Vedotin-Ejfv [Padcev] 100 mg IV ASDIRECTED 11/22/19 [History] Insulin Aspart [NovoLOG] 2 units SUBCUT ASDIRECTED 11/22/19 [History] Insulin Glarg,Human.Rec.Analog [Lantus] 20 units SUBCUT DAILY 11/22/19 [History] Oxybutynin Chloride [Ditropan Xl] 5 mg PO DAILY 11/22/19 [History] Tamsulosin HCl [Flomax] 0.4 mg PO DAILY 11/22/19 [History] Zolpidem Tartrate [Ambien] 5 mg PO BEDTIME PRN 11/22/19 [History] Past Medical History HEENT History: Reports: Cataract Cardiovascular History: Reports: High Cholesterol Gastrointestinal History: Reports: GERD Genitourinary History: Reports: Chronic Renal Insuffiency Other Genitourinary History: 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 Musculoskeletal History: Reports: Arthritis, Other (See Below) Other Musculoskeletal History: degenerative disc disease Neurological History: Reports: Headaches, Chronic, Other (See Below) Other Neuro History: insomnia Endocrine/Metabolic History: Reports: Diabetes, Type II Hematologic History: Reports: Anemia Oncologic (Cancer) History: Reports: Basal Cell Carcinoma, Bladder, Liver, Renal , Squamous Cell Carcinoma Other Oncologic History: completed chemo 02/2017. 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 Other Dermatologic History: basal cell carcinoma, squamous cell carcinoma, - Past Surgical History Male Surgical History: Reports: Nephrectomy, Other (See Below) Other Male Surgeries/Procedures: ureterectomy, adrenalectomy and bladder cuff resection for renal CA Social & Family History - Family History Family Medical History: Noncontributory - Tobacco Use Smoking Status *Q: Never Smoker - Caffeine Use Caffeine Use: Reports: Coffee, Soda, Tea - Recreational Drug Use Recreational Drug Use: No ED ROS GENERAL - Review of Systems Review Of Systems: See Below Constitutional: Reports: Malaise, Weakness, Fatigue, Decreased Appetite. Denies : Fever, Chills HEENT: Reports: No Symptoms Respiratory: Denies: Shortness of Breath, Cough Cardiovascular: Denies: Chest Pain, Edema, Lightheadedness Endocrine: Reports: Fatigue GI/Abdominal: Reports: Abdominal Pain, Constipation. Denies: Nausea, Vomiting : Reports: No Symptoms Musculoskeletal: Reports: No Symptoms Skin: Reports: No Symptoms Neurological: Reports: Weakness ED EXAM, GI/ABD - Physical Exam Exam: See Below Exam Limited By: No Limitations General Appearance: Alert, WD/WN, No Apparent Distress Ears: Normal External Exam, Normal TMs Nose: Normal Inspection, Normal Mucosa, No Blood Throat/Mouth: Normal Inspection, Normal Oropharynx Head: Normocephalic Neck: Normal Inspection, Supple, Non-Tender Respiratory/Chest: No Respiratory Distress, Lungs Clear, Normal Breath Sounds Cardiovascular: Regular Rate, Rhythm GI/Abdominal Exam: Normal Bowel Sounds, Soft, Tender (lower quads) Extremities: Normal Inspection, No Pedal Edema Neurological: Alert, Oriented Skin Exam: Warm, Dry Course - Vital Signs Last Recorded V/S: Last Vital Signs Temp 97.1 F 11/22/19 11:20 Pulse 108 H 11/22/19 11:20 Resp 18 11/22/19 11:20 BP 139/80 11/22/19 11:20 Pulse Ox 98 11/22/19 11:20 - Orders/Labs/Meds Meds: Medications Discontinued Medications Generic Name Dose Route Start Last Admin Trade Name Freq PRN Reason Stop Dose Admin Sodium Biphosphate/Sodium Phosphate 133 ml 11/22/19 11:38 11/22/19 11:58 Fleet Enema RECTAL 11/22/19 11:39 1 box ONETIME ONE Administration - Re-Assessments/Exams Free Text/Narrative Re-Assessment/Exam: 11/22/19 12:24 Patient had good results from the fleets enema. Feeling much better. Discussed further use of Miralax daily to prevent ongoing concerns with constipation. Departure - Departure Time of Disposition: 12:25 Disposition: Home, Self-Care 01 Condition: Good Clinical Impression: Constipation - Discharge Information *PRESCRIPTION DRUG MONITORING PROGRAM REVIEWED*: No *COPY OF PRESCRIPTION DRUG MONITORING REPORT IN PATIENT SHOBHA: No Instructions: Constipation, Adult Forms: ED Department Discharge Additional Instructions: 1. Push fluids 2. Miralax one scoop daily- if stools become too frequent, can decrease to 1/2 scoop daily 3. Follow up if develop increasing pain, nausea or vomiting Sepsis Event Note - Evaluation Sepsis Screening Result: No Definite Risk - Focused Exam Vital Signs: Vital Signs Temp Pulse Resp BP Pulse Ox 11/22/19 11:20 97.1 F 108 H 18 139/80 98 Date Exam was Performed: 11/22/19 Time Exam was Performed: 12:24
== END 2019-11-22 12:30 | disposition home or self-care (01) ==
LOC: VM.ED 10:53
DX: K59.00 Constipation, unspecified (principal); E78.00 Pure hypercholesterolemia, unspecified; E11.22 Type 2 diabetes mellitus with diabetic chronic kidney disease; N18.9 Chronic kidney disease, unspecified; K21.9 Gastro-esophageal reflux disease without esophagitis; M19.90 Unspecified osteoarthritis, unspecified site; Z79.899 Other long term (current) drug therapy; Z79.4 Long term (current) use of insulin
CPT/HCPCS: 99283; 99284-GF; A9270-GY

== ENCOUNTER 2020-02-09 08:39 | Emergency (ER) | payer MEDICARE ==
--- NOTE | 2020-02-09 09:46 | EDM.PDOC ---
ED HPI GENERAL MEDICAL PROBLEM - General Chief Complaint: Gastrointestinal Problem Stated Complaint: Constipation Time Seen by Provider: 02/09/20 09:00 Source of Information: Reports: Patient History Limitations: Reports: No Limitations - History of Present Illness INITIAL COMMENTS - FREE TEXT/NARRATIVE: Patient states since being on chemotherapy secondary to liver cancer he has had intermittent bouts of constipation with changes of his regiment. He states is been about 3 to 4 days since he had his last bowel movement since he started his latest regiment of chemotherapy treatment He said he has had this episodes multiple times during his course of treatment with no changes. He states he had a mild abdominal pain about a 4 out of 10 prior to being disimpacted here by the nurses but now the pain is 0 He has no other complaints states he feels fine overall ready to go home Duration: Day(s): Associated Symptoms: Reports: No Other Symptoms - Related Data Allergies Allergy/AdvReac Type Severity Reaction Status Date / Time No Known Allergies Allergy Verified 09/14/19 21:11 Home Meds: Home Meds Acetaminophen/Diphenhydramine [Tylenol Pm Ex-Strength Caplet] 2 each PO BEDTIME 09/10/18 [History] Omeprazole 20 mg PO DAILY PRN 09/10/18 [History] Simvastatin 20 mg PO DAILY 09/10/18 [History] Dorzolamide [Trusopt 2% Ophth Soln] 1 drop OP BID 09/14/19 [History] Lidocaine/Prilocaine [Lidocaine-Prilocaine Cream] 5 gm TP ASDIRECTED PRN [History] Magnesium Oxide [Magnesium] 800 mg PO BID 09/14/19 [History] Prochlorperazine [Compazine] 10 mg PO Q6H PRN 09/14/19 [History] dronabinoL [Dronabinol] 5 mg PO DAILY 09/14/19 [History] Enfortumab Vedotin-Ejfv [Padcev] 100 mg IV ASDIRECTED 11/22/19 [History] Insulin Aspart [NovoLOG] 2 units SUBCUT ASDIRECTED 11/22/19 [History] Insulin Glarg,Human.Rec.Analog [Lantus] 20 units SUBCUT DAILY 11/22/19 [History] Oxybutynin Chloride [Ditropan Xl] 5 mg PO DAILY 11/22/19 [History] Tamsulosin HCl [Flomax] 0.4 mg PO DAILY 11/22/19 [History] Zolpidem Tartrate [Ambien] 5 mg PO BEDTIME PRN 11/22/19 [History] Past Medical History HEENT History: Reports: Cataract Cardiovascular History: Reports: High Cholesterol Gastrointestinal History: Reports: GERD Genitourinary History: Reports: Chronic Renal Insuffiency Other Genitourinary History: 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 Musculoskeletal History: Reports: Arthritis, Other (See Below) Other Musculoskeletal History: degenerative disc disease Neurological History: Reports: Headaches, Chronic, Other (See Below) Other Neuro History: insomnia Endocrine/Metabolic History: Reports: Diabetes, Type II Hematologic History: Reports: Anemia Oncologic (Cancer) History: Reports: Basal Cell Carcinoma, Bladder, Liver, Renal , Squamous Cell Carcinoma Other Oncologic History: completed chemo 02/2017. 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 Other Dermatologic History: basal cell carcinoma, squamous cell carcinoma, - Past Surgical History Male Surgical History: Reports: Nephrectomy, Other (See Below) Other Male Surgeries/Procedures: ureterectomy, adrenalectomy and bladder cuff resection for renal CA Social & Family History - Family History Family Medical History: Noncontributory - Caffeine Use Caffeine Use: Reports: Coffee, Soda, Tea ED ROS GENERAL - Review of Systems Review Of Systems: See Below Constitutional: Reports: No Symptoms HEENT: Reports: No Symptoms Respiratory: Reports: No Symptoms Cardiovascular: Reports: No Symptoms Endocrine: Reports: No Symptoms GI/Abdominal: Reports: Abdominal Pain, Constipation. Denies: Anorexia, Black Stool, Bloody Stool, Diarrhea, Decreased Appetite, Difficulty Swallowing, Distension, Flatus, Hematemesis, Hematochezia, Melena, Mucous in Stool, Nausea, Stool Incontinence, Vomiting : Reports: No Symptoms Musculoskeletal: Reports: No Symptoms Skin: Reports: No Symptoms Neurological: Reports: No Symptoms Psychiatric: Reports: No Symptoms Hematologic/Lymphatic: Reports: No Symptoms Immunologic: Reports: No Symptoms ED EXAM, GI/ABD - Physical Exam Exam: See Below Exam Limited By: No Limitations General Appearance: Alert, WD/WN, No Apparent Distress, Other (Patient is alert and oriented x4 cooperative follows all commands very friendly and jovial) Eyes: Bilateral: Normal Appearance Throat/Mouth: Normal Inspection, Normal Lips, Normal Teeth, Normal Gums, Normal Oropharynx, Normal Voice, No Airway Compromise Head: Atraumatic, Normocephalic Neck: Normal Inspection, Supple, Non-Tender, Full Range of Motion Respiratory/Chest: No Respiratory Distress, Lungs Clear, Normal Breath Sounds, No Accessory Muscle Use, Chest Non-Tender Cardiovascular: Normal Peripheral Pulses, Regular Rate, Rhythm, No Edema, No Gallop, No JVD, No Murmur, No Rub GI/Abdominal Exam: Normal Bowel Sounds, Soft, Non-Tender, No Organomegaly, No Distention Back Exam: Normal Inspection, Full Range of Motion Extremities: Normal Inspection, Normal Range of Motion, Non-Tender, No Pedal Edema, Normal Capillary Refill Neurological: Alert, Oriented, CN II-XII Intact, Normal Cognition, Normal Gait Psychiatric: Normal Affect, Normal Mood Skin Exam: Warm, Dry, Intact, Normal Color, No Rash Lymphatic: No Adenopathy Course - Vital Signs Text/Narrative:: Patient was reexamined after disimpaction by the nurse states he feels 100% better and wants to go home he has no pain whatsoever now abdomen is soft and nontender with positive bowel sounds Departure - Departure Time of Disposition: 09:50 Disposition: Home, Self-Care 01 Condition: Good Clinical Impression: Constipation, Liver cancer - Discharge Information *PRESCRIPTION DRUG MONITORING PROGRAM REVIEWED*: No *COPY OF PRESCRIPTION DRUG MONITORING REPORT IN PATIENT SHOBHA: No Forms: ED Department Discharge - Problem List & Annotations (1) Constipation SNOMED Code(s): 44280738 Code(s): K59.00 - CONSTIPATION, UNSPECIFIED Status: Acute (2) Liver cancer SNOMED Code(s): 69107465 Code(s): C22.9 - MALIG NEOPLASM OF LIVER, NOT SPECIFIED PRIMARY OR SEC Status: Acute
[2020-02-09 11:32] VITALS: BP 128/75; PULSE 95
== END 2020-02-09 09:55 | disposition home or self-care (01) ==
LOC: VM.ED 08:39
DX: K59.00 Constipation, unspecified (principal); C22.8 Malignant neoplasm of liver, primary, unspecified as to type; E78.00 Pure hypercholesterolemia, unspecified; K21.9 Gastro-esophageal reflux disease without esophagitis; N18.9 Chronic kidney disease, unspecified; E11.22 Type 2 diabetes mellitus with diabetic chronic kidney disease; Z79.899 Other long term (current) drug therapy; Z79.4 Long term (current) use of insulin
CPT/HCPCS: 99283; 99284-GF